=== PATIENT | female | born 1965 | race Caucasian/White ===

== ENCOUNTER 2025-01-03 02:40 | Emergency (ER) | payer SELFPAY ==
[2025-01-03 02:56] LABS: BASOPHILS ABSOLUTE AUTO 0.1 K/mm3 (0.0-0.2); BASOPHILS PERCENT AUTO 0.9 % (0.0-1.0); EOSINOPHILS ABSOLUTE AUTO 0.3 K/mm3 (0.0-0.4); EOSINOPHILS PERCENT AUTO 4.8 % (0.0-6.0); IMMATURE GRAN ABSOLUTE AUTO 0.08 K/mm3 (0.00-0.05); IMMATURE GRAN PERCENT AUTO 1.2 % (0.0-0.4); LYMPHOCYTES ABSOLUTE AUTO 1.9 K/mm3 (1.0-4.8); LYMPHOCYTES PERCENT AUTO 29.1 % (24.0-44.0); MEAN PLATELET VOLUME 10.0 fl (9.4-12.3); MONOCYTES ABSOLUTE AUTO 0.7 K/mm3 (0.0-0.8); MONOCYTES PERCENT AUTO 10.7 % (0.0-8.0); NEUTROPHILS ABSOLUTE AUTO 3.4 K/mm3 (1.8-7.7); NEUTROPHILS PERCENT AUTO 53.3 % (41.0-71.0); NRBC ABSOLUTE 0.00 (0.00-0.02); NRBC PERCENT 0.0 % (0.0-0.2); PLATELET COUNT,PLT 188 K/mm3 (150-400); RED BLOOD CELL COUNT 4.42 M/mm3 (4.10-5.30); WHITE BLOOD CELL COUNT,WBC 6.46 K/mm3 (3.9-11.3)
[2025-01-03] MEDS: Ondansetron 4 MG/2 ML SDV IVPUSH ONE (03:07)
[2025-01-03 03:26] LABS: A/G RATIO 1.1 (1-2); ALANINE AMINOTRANSFERASE,ALT 40.0 U/L (14-59); ASPARTATE AMNIOTRANSFERASE,AST 35.0 U/L (15-37); BILIRUBIN TOTAL 0.5 mg/dL (0.2-1.0); BLOOD UREA NITROGEN,BUN 30.0 mg/dL (7-18); CARBON DIOXIDE,CO2 32.0 mEq/L (21-32); CHLORIDE,CL 104.0 mEq/L (98-107); CREATININE 1.9 mg/dL (0.55-1.02); EST CRCL DRUG DOSING (CG) 25.72 mL/min; ESTIMATED GFR 30.0 mL/min (>60); GLUCOSE RANDOM 122.0 mg/dL (70-99); POTASSIUM,K 2.9 mEq/L (3.5-5.1); PROTEIN TOTAL,TP 7.1 g/dl (6.4-8.2); SODIUM,NA 142.0 mEq/L (136-145); TROPONIN I HIGH SENSITIVITY 11.0 pg/mL (<=51)
[2025-01-03] MEDS: Iopamidol 755 Mg/ML 100 ML Bottle IVPUSH ONE (03:29)
[2025-01-03 03:32] LABS: INR 0.98
[2025-01-03 03:34] LABS: PTT,PARTIAL THROMBOPLSTIN TIME 24.3 SECONDS (21.7-31.4)
[2025-01-03] MEDS: Esmolol 100 MG/10 ML SDV IV ONE (03:43)
[2025-01-03] MEDS: Esmolol HCL in Sterile Water 2,500 MG/250 ML BAG IV SCH (03:43)
[2025-01-03 03:52] LABS: D-DIMER QUANTITATIVE 25.28 mg/L (0.19-0.50)
[2025-01-03] MEDS: Esmolol 100 MG/10 ML SDV ONE ×2 (03:56)
== END 2025-01-03 05:29 ==
LOC: JD.ED 02:40
DX: I71.03 Dissection of thoracoabdominal aorta (principal); I10 Essential (primary) hypertension; E66.9 Obesity, unspecified; Z79.899 Other long term (current) drug therapy; Z68.42 Body mass index [BMI] 45.0-49.9, adult
CPT/HCPCS: 36415; 71045; 71045-26; 71275; 71275-26; 74175; 74175-26; 80053; 83690; 83880; 84484; 85025; 85379; 85610; 85730; 86850; 86900; 86901; 93005; 93010; 96365; 96366; 96368; 96375; 96376; 99285-25; 99291; J1171; J1805; J2305; J2405; J3490; Q9967